=== PATIENT | male | born 1990 | race Caucasian/White ===

== ENCOUNTER 2020-06-15 16:39 | Inpatient (IN) | payer MEDICAID, OTHER ==
--- NOTE | 2020-06-15 17:35 | ED ---
Psych HPI - General Source: patient, EMS, RN notes reviewed Mode of arrival: EMS Limitations: no limitations <Larry Ceja - Last Filed: 06/15/20 17:33> <Brad Rossi - Last Filed: 06/15/20 19:40> - General Chief Complaint: Psychiatric Symptoms Stated Complaint: hallucinations Time Seen by Provider: 06/15/20 16:53 - History of Present Illness Initial Comments: This a 29-year-old male presents emergency Department via EMS from [place] chief complaint of hallucinations. Patient states he's been having hua ucinations for several weeks. He states that worsened since he's been at [place]. He states that he has felt suicidal at times but not currently suicidal. Patient does admit that he relapsed on methamphetamines and that's why he went to [place]. Patient does admit that he is on Suboxone, Xanax, Neurontin which is on this for several years. Patient denies any alcohol abuse. (Larry Ceja) Review of Systems ROS Other: All systems not noted in ROS Statement are negative. <Larry Ceja - Last Filed: 06/15/20 17:33> ROS Other: All systems not noted in ROS Statement are negative. <Brad Rossi - Last Filed: 06/15/20 19:40> ROS Statement: Those systems with pertinent positive or pertinent negative responses have been documented in the HPI. Past Medical History Past Medical History: No Reported History History of Any Multi-Drug Resistant Organisms: None Reported Past Surgical History: No Surgical Hx Reported Past Psychological History: Anxiety, Depression, Schizophrenia Smoking Status: Current every day smoker Past Alcohol Use History: None Reported Past Drug Use History: Methamphetamine <Larry Ceja - Last Filed: 06/15/20 17:33> General Exam Limitations: no limitations General appearance: alert, in no apparent distress Head exam: Present: atraumatic, normocephalic, normal inspection Eye exam: Present: normal appearance, PERRL, EOMI. Absent: scleral icterus, conjunctival injection, periorbital swelling ENT exam: Present: normal exam, normal oropharynx, mucous membranes moist Neck exam: Present: normal inspection, full ROM. Absent: tenderness, meningismus, lymphadenopathy Respiratory exam: Present: normal lung sounds bilaterally. Absent: respiratory distress, wheezes, rales, rhonchi, stridor Cardiovascular Exam: Present: regular rate, normal rhythm, normal heart sounds. Absent: systolic murmur, diastolic murmur, rubs, gallop, clicks GI/Abdominal exam: Present: soft, normal bowel sounds. Absent: distended, tenderness, guarding, rebound, rigid Neurological exam: Present: alert, oriented X3 Psychiatric exam: Present: flat affect Skin exam: Present: warm, dry, intact, normal color. Absent: rash <Larry Ceja - Last Filed: 06/15/20 17:33> Course Vital Signs 06/15/20 16:51 Temperature 98.3 F Pulse Rate 57 L Respiratory 18 Rate Blood Pressure 118/75 O2 Sat by Pulse 99 Oximetry Medical Decision Making <Brad Rossi - Last Filed: 06/15/20 19:40> - Medical Decision Making Patient seen by mental health services with plans for admission (Brad Rossi) - Lab Data Lab Results 06/15/20 Range/Units 17:07 Urine Opiates Screen Not Detected (NotDetected) Ur Oxycodone Screen Not Detected (NotDetected) Urine Methadone Screen Not Detected (NotDetected) Ur Propoxyphene Screen Not Detected (NotDetected) Ur Barbiturates Screen Not Detected (NotDetected) U Tricyclic Antidepress Not Detected (NotDetected) Ur Phencyclidine Scrn Not Detected (NotDetected) Ur Amphetamines Screen Not Detected (NotDetected) U Methamphetamines Scrn Not Detected (NotDetected) U Benzodiazepines Scrn Not Detected (NotDetected) Urine Cocaine Screen Not Detected (NotDetected) U Marijuana (THC) Screen Not Detected (NotDetected) Disposition <Larry Ceja - Last Filed: 06/15/20 17:33> Is patient prescribed a controlled substance at d/c from ED?: No Decision Time: 19:40 <Brad Rossi - Last Filed: 06/15/20 19:40> Clinical Impression: Psychosis Disposition: TRANSFER TO PSYCH HOSP/UNIT Referrals: Nonstaff,Physician [Primary Care Provider] - 1-2 days
[2020-06-15 17:46] LABS: Amphetamine Screen,Urine Not Detected (NotDetected); Barbiturate Screen,Urine Not Detected (NotDetected); Benzodiazepines Screen,Urine Not Detected (NotDetected); Cocaine Screen,Urine Not Detected (NotDetected); Methadone Screen, Urine Not Detected (NotDetected); Opiate Screen,Urine Not Detected (NotDetected); Oxycodone Screen, Urine Not Detected (NotDetected); Phencyclidine Screen,Urine Not Detected (NotDetected); Tricyclic Antidepressant,Urine Not Detected (NotDetected); Urn Cannabinoid Scrn Not Detected (NotDetected)
[2020-06-16] MEDS ORDERED: HALOPERIDOL LACTATE 5 MG/ML 1 ML VIAL IM PRN (00:40)
[2020-06-16 00:56] LABS: Appearance,Urine Clear (Clear); Bilirubin,Urine Negative (Negative); Blood,Urine Negative (Negative); Color,Urine Light Yellow; Glucose,Urine (UA) Negative (Negative); Ketones,Urine Negative (Negative); Leukocyte Esterase,Urine Negative (Negative); Nitrite,Urine Negative (Negative); PH, Urine 6.5 (5.0-8.0); Protein,Urine Negative (Negative); Urobilinogen,Urine <2.0 mg/dL (<2.0)
[2020-06-16] MEDS: ACETAMINOPHEN TAB 325 MG TAB PO PRN ×3 (01:30→18:40)
[2020-06-16] MEDS: LORazepam 1 MG TAB PO PRN ×3 (01:30→18:41)
[2020-06-16] MEDS ORDERED: MAG HYDROX/AL HYDROX/SIMETH 30 ML CUP PO PRN (04:00)
[2020-06-16] MEDS ORDERED: MAGNESIUM HYDROXIDE 2,400 MG/10 ML CUP PO PRN (09:00)
[2020-06-16] MEDS ORDERED: NICOTINE 21MG/24HR PATCH TRANSDERM SCH (09:00)
[2020-06-16] MEDS ORDERED: NICOTINE 14MG/24HR PATCH TRANSDERM SCH (09:00)
[2020-06-16] MEDS ORDERED: cloNIDine HCL 0.1 MG TAB PO PRN (10:10)
[2020-06-16] MEDS ORDERED: traZODone HCL 50 MG TAB PO PRN (10:12)
[2020-06-16] MEDS ORDERED: hydrOXYzine pamoate 25 MG CAP PO PRN (10:12)
[2020-06-16] MEDS ORDERED: PALIPERIDONE 3 MG TAB.ER.24 PO SCH (10:15)
--- NOTE | 2020-06-16 10:24 | P.HP ---
Psychiatric H&P - . H&P Date: 06/16/20 History & Physical: Allergies Allergy/AdvReac Type Severity Reaction Status Date / Time No Known Allergies Allergy Verified 06/16/20 02:41 Vital Signs Temp 98.1 F 06/16/20 02:04 Pulse 75 06/16/20 08:50 Resp 18 06/16/20 02:04 BP 115/77 06/16/20 08:50 Pulse Ox 100 06/16/20 02:04 Intake & Output 06/15/20 06/16/20 06/16/20 18:59 06:59 18:59 Weight 61.235 kg 57.1 kg Laboratory Last Values Urine Color Light Yellow 06/16/20 00:00 Urine Appearance Clear (Clear) 06/16/20 00:00 Urine pH 6.5 (5.0-8.0) 06/16/20 00:00 Ur Specific Dorothy 1.010 (1.001-1.035) 06/16/20 00:00 Urine Protein Negative (Negative) 06/16/20 00:00 Urine Glucose (UA) Negative (Negative) 06/16/20 00:00 Urine Ketones Negative (Negative) 06/16/20 00:00 Urine Blood Negative (Negative) 06/16/20 00:00 Urine Nitrite Negative (Negative) 06/16/20 00:00 Urine Bilirubin Negative (Negative) 06/16/20 00:00 Urine Urobilinogen <2.0 mg/dL (<2.0) 06/16/20 00:00 Ur Leukocyte Esterase Negative (Negative) 06/16/20 00:00 Urine Opiates Screen Not Detected (NotDetected) 06/15/20 17:07 Ur Oxycodone Screen Not Detected (NotDetected) 06/15/20 17:07 Urine Methadone Screen Not Detected (NotDetected) 06/15/20 17:07 Ur Propoxyphene Screen Not Detected (NotDetected) 06/15/20 17:07 Ur Barbiturates Screen Not Detected (NotDetected) 06/15/20 17:07 U Tricyclic Antidepress Not Detected (NotDetected) 06/15/20 17:07 Ur Phencyclidine Scrn Not Detected (NotDetected) 06/15/20 17:07 Ur Amphetamines Screen Not Detected (NotDetected) 06/15/20 17:07 U Methamphetamines Scrn Not Detected (NotDetected) 06/15/20 17:07 U Benzodiazepines Scrn Not Detected (NotDetected) 06/15/20 17:07 Urine Cocaine Screen Not Detected (NotDetected) 06/15/20 17:07 U Marijuana (THC) Screen Not Detected (NotDetected) 06/15/20 17:07 Coronavirus (PCR) Not Detected (Not Detectd) 06/15/20 21:04 06/16/20 10:14 IDENTIFYING DATA: Patient is a 29-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 HPI: Patient presented to the hospital yesterday after coming from [facility] as he was complaining of auditory and visual hallucinations. Patient claimed in the ER that it has been going on for several weeks and has been worsening since he is at rehab. Patient also endorsed in the ER than he was previously feeling suicidal and had relapsed on methamphetamine. Patient's UDS was negative. Patient was seen today and appeared to have fair hygiene and grooming and was cooperative with interview. He claims that for approximately 1-1/2 years she has been having episodes where he hears voices and has been seeing things. He claims that there has been significant paranoia that she believes that people have been trying to poison him and also have been plotting against him. He claims that he has attempted suicide twice in the past 1-1/2 years however his girlfriend has "saved me". He claims that when he was in snf he was placed on Zyprexa and BuSpar which helped him. He claims that he was having difficulty at work due to feeling that his coworkers return to poison him. He states that also living with friends has been difficult for him as he feels they are drugging him. He states that his last use of methamphetamine was on June 01 and states that he has been at [facility] for 90s now. He claims that these voices and thoughts have been occurring even after he is sober. He states that his mood is "relieved" at this time however continues to endorse anxiety. He states that he's been having vivid dreams and claims that last night he dreamt of "killing my best friend" even though he claims that he has no wish to do this. He states that he has been sleeping fairly at night approximately 7-8 hours. He was endorsing mild opiate withdrawal symptoms at this time including running nose and mild aches.. Patient denies any suicidal or homicidal ideations intent or plan. Patient denies any flight of ideas racing thoughts and increased in goal directed behavior. Patient admits to using methamphetamine for approximately one half years however states that he has been sober since June 01. He claims that he smokes marijuana daily approximately half an ounce a day. He states that he smokes cigarettes and denies any other recreational drug use. PAST PSYCHIATRIC HISTORY: Patient states that he has a history of polysubstance abuse and psychosis. He claims that he remembers being on Zyprexa and BuSpar while he was in snf in the past. Patient denies any previous psychiatric hospitalizations. Patient denies any psychiatric outpatient follow-up. He states that he has had multiple suicide attempts including 6 overdoses and 2 times where he cut his arm. PMH:denies ALLERGIES: as per EMR CHEMICAL DEPENDENCY HISTORY: as per HPI FAMILY PSYCHIATRIC/SUBSTANCE USE HISTORY: denies SOCIAL HISTORY: Patient was born and raised in [facility] and claims that he completed his GED in school. 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 He states that he has been to snf twice in the past for drug related charges. MENTAL STATUS EXAM: General Appearance: Patient appears to be short in stature, thin, stated age is alert, directable, and attempts to attempts to cooperate. Patient appears to h ave fair hygiene and grooming. Behavior: Patient is seated without any agitated behavior. . Appears to be anxious at times. Speech: Patient's speech is fluent and nonpressured. Hesitant. Mood/Affect: Patient reports their mood is " relieved", affect is congruent Suicidality/Homicidality: Patient denies having any homicidal ideation intent or plan. Denies any suicidal ideations intent or plan Perceptions: Patient admits to visual and auditory hallucinations of people plotting against him and try to poison him and also the voices "telling me to do stuff". Though content/process: There is no evidence of any delusional thought content and thought process is linear and goal-directed. Memory and concentration: AOX3, grossly intact for the purposes of this session. Can spell "WORLD" backwards Judgment and insight: poor STRENGTHS/WEAKNESSES: strength is that patient is resilient. Weakness is that patient has poor judgment and chronic substance abuse INTELLECT: average IMPRESSIONS: Psychosis unspecified, rule out psychosis secondary to substance use including cannabis and methamphetamine Cannabis use disorder Methamphetamine abuse Opioid use disorder, currently in withdrawal Nicotine dependence PLAN: -Patient is admitted under voluntary status to MHU for stabilization of psychiatric symptoms and safety. Patient has signed adult voluntary form and medication consent and is placed in patient's chart. -Medications : Will start patient on paliperidone by mouth 3 mg daily for psychosis. BuSpar 10 mg twice a day for anxiety. Vistaril 25 mg every 6 hours when necessary for anxiety. Trazodone 50 mg daily at bedtime when necessary for insomnia. Clonidine 0.1 mg 3 times a day when necessary for opiate withdrawal. -Patient claims that he is on Suboxone as an outpatient however will be to try to arrange for his mother to have it brought in to be placed back on it as he has been on this medication for approximately 5 years due to previous opioid use disorder. -Ativan and Haldol PRN for agitation/aggression -Patient was counselled on substance abuse and desired to cut back on use -Patient was informed of the risks, benefits and side effects of the medication and patient verbally consented to taking the medications. Patient signed med consent form and was placed in chart. -Internal Medicine consult to perform medical evaluation and physical. -NRT - nicotine patch -SW on board for discharge planning. Encourage patient to participate in groups to work on coping skills.
[2020-06-16] MEDS ORDERED: CLINDAMYCIN 900 MG in DEXTROSE 5% IN WATER 50 ML IVPB STA ×2 (19:49)
[2020-06-16] MEDS ORDERED: DOXYCYCLINE 100 MG in SODIUM CHLORIDE 0.9% 100 ML IVPB ONE (19:54)
--- NOTE | 2020-06-16 20:27 | CT ---
EXAMINATION TYPE: CT sinus w con DATE OF EXAM: 06/16/2020 COMPARISON: None HISTORY: c/o facial pain with cellulitis CT DLP: 321.7 mGycm Automated exposure control for dose reduction was used. CONTRAST: Performed with IV Contrast, patient injected with 100 mL of Isovue 300. Images were obtained from the level of the bottom of the maxilla to the top of the frontal sinuses wi th IV contrast. Visualized mandible appears intact. The maxilla is intact. There is intact zygomatic arches. Nasal dylon ne is intact. There is normal aeration of the paranasal sinuses. There is no evidence of orbital mass . The globes are symmetric. There is normal aeration of the mastoid sinuses. There is normal aeration of the epitympanic recess bilaterally. There is no evidence of a blowout fracture. There is no pathologic enhancement. The tonsils and adeno ids appear normal. IMPRESSION: Negative CT scan of the facial bones and paranasal sinuses. No evidence of sinusitis.
[2020-06-16 20:54] VITALS: BP 117/70; PULSE 107; RESP 16; TEMP 99.3
[2020-06-16] MEDS ORDERED: AMOXIC-POT CLAV 875-125MG 1 EACH TAB PO SCH (21:00)
[2020-06-16] MEDS ORDERED: busPIRone HCl 10 MG TAB PO SCH (21:00)
== END 2020-06-16 20:48 | disposition short-term general hospital (02) | DRG 885 ==
LOC: EC 16:39 → 3MHU 23:57
PROVIDERS: ADMIT Psychiatry & Neurology Psychiatry; ATTEND Psychiatry & Neurology Psychiatry
DX: F29 Unspecified psychosis not due to a substance or known physiological condition (principal); R45.851 Suicidal ideations; F11.23 Opioid dependence with withdrawal; F15.10 Other stimulant abuse, uncomplicated; F12.10 Cannabis abuse, uncomplicated; Z20.828 Contact with and (suspected) exposure to other viral communicable diseases; F41.9 Anxiety disorder, unspecified; F17.210 Nicotine dependence, cigarettes, uncomplicated; Z71.6 Tobacco abuse counseling; Z91.5 Personal history of self-harm
CPT/HCPCS: 70487; 80306; 81003; 82075; 87635; 99285

== ENCOUNTER 2020-06-16 20:56 | Inpatient (IN) | payer OTHER ==
[2020-06-16 21:53] LABS: Basophils # (A) 0.1 k/uL (0-0.2); Basophils % (A) 1 %; Eosinophils # (A) 0.1 k/uL (0-0.7); Eosinophils % (A) 1 %; HCT 47.8 % (39.0-53.0); HGB 15.5 gm/dL (13.0-17.5); Lymphocytes # (A) 2.5 k/uL (1.0-4.8); Lymphocytes % (A) 19 %; MCH 30.5 pg (25.0-35.0); MCHC 32.5 g/dL (31.0-37.0); MCV 93.7 fL (80.0-100.0); Monocytes # (A) 0.8 k/uL (0-1.0); Monocytes % (A) 6 %; Neutrophils # (A) 9.2 k/uL (1.3-7.7); Neutrophils % (A) 72 %; Platelet Count 190 k/uL (150-450); RDW 13.9 % (11.5-15.5); WBC 12.8 k/uL (3.8-10.6)
[2020-06-16] MEDS ORDERED: NALOXONE 0.4 MG/ML 1 ML VIAL IV PRN (22:05)
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
[2020-06-16 22:33] LABS: ALT 317 U/L (4-49); AST 138 U/L (17-59); African American GFR (CKD) >90 (>60 ml/min/1.73 sqM); Albumin 4.4 g/dL (3.5-5.0); Albumin/Globulin Ratio 1.4; Alkaline Phosphatase 112 U/L (38-126); Anion Gap 9 mmol/L; Blood Urea Nitrogen 25 mg/dL (9-20); Calcium 9.9 mg/dL (8.4-10.2); Carbon Dioxide 23 mmol/L (22-30); Chloride 105 mmol/L (98-107); Globulin 3.1 g/dL; Glucose 94 mg/dL (74-99); Non-African American GFR(CKD) 86 (>60 ml/min/1.73 sqM); Potassium 4.5 mmol/L (3.5-5.1); Sodium 137 mmol/L (137-145); Total Bilirubin 0.5 mg/dL (0.2-1.3); Total Protein 7.5 g/dL (6.3-8.2)
[2020-06-16] MEDS: SODIUM CHLORIDE 0.9% 1,000 ML IV SCH (22:49)
[2020-06-16] MEDS: AMOXIC-POT CLAV 875-125MG 1 EACH TAB PO SCH (22:55)
[2020-06-16] MEDS: traZODone HCL 50 MG TAB PO PRN (22:55)
[2020-06-16] MEDS: HYDROcodone/APAP 5-325MG 1 EACH TAB PO PRN (22:55)
[2020-06-16] MEDS: CLINDAMYCIN 600 MG in DEXTROSE 5% IN WATER 50 ML IVPB SCH ×2 (23:56)
[2020-06-17] MEDS: HYDROcodone/APAP 5-325MG 1 EACH TAB PO PRN ×4 (05:20→19:14)
[2020-06-17] MEDS: CLINDAMYCIN 600 MG in DEXTROSE 5% IN WATER 50 ML IVPB SCH ×2 (05:21)
[2020-06-17 06:41] LABS: Basophils # (A) 0.1 k/uL (0-0.2); Basophils % (A) 1 %; Eosinophils # (A) 0.1 k/uL (0-0.7); Eosinophils % (A) 1 %; HCT 45.4 % (39.0-53.0); HGB 14.8 gm/dL (13.0-17.5); Lymphocytes # (A) 2.3 k/uL (1.0-4.8); Lymphocytes % (A) 19 %; MCH 30.2 pg (25.0-35.0); MCHC 32.7 g/dL (31.0-37.0); MCV 92.3 fL (80.0-100.0); Mean Platelet Volume 7.8; Monocytes # (A) 0.7 k/uL (0-1.0); Monocytes % (A) 6 %; Neutrophils # (A) 9.1 k/uL (1.3-7.7); Neutrophils % (A) 73 %; Platelet Count 192 k/uL (150-450); RBC 4.91 m/uL (4.30-5.90); RDW 13.8 % (11.5-15.5); WBC 12.4 k/uL (3.8-10.6)
[2020-06-17] MEDS: busPIRone HCl 10 MG TAB PO SCH ×2 (07:13→20:01)
[2020-06-17] MEDS: AMOXIC-POT CLAV 875-125MG 1 EACH TAB PO SCH (07:13)
[2020-06-17] MEDS: PALIPERIDONE 3 MG TAB.ER.24 PO SCH (07:13)
[2020-06-17] MEDS: NICOTINE 21MG/24HR PATCH TRANSDERM SCH (07:13)
[2020-06-17] MEDS: GABAPENTIN 300 MG CAP PO SCH ×2 (08:22→20:01)
[2020-06-17] MEDS: ALPRAZolam 0.5 MG TAB PO PRN ×2 (08:22→17:16)
[2020-06-17] MEDS ORDERED: VANCOMYCIN IV PER PHARMACY 1 EACH MISC MISCELLANE PRN (09:21)
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
[2020-06-17] MEDS: VANCOMYCIN 1,250 MG in SODIUM CHLORIDE 0.9% 250 ML IVPB SCH ×2 (10:03→17:13)
[2020-06-17] MEDS: SODIUM CHLORIDE 0.9% 1,000 ML IV SCH (10:09)
[2020-06-17 10:39] LABS: African American GFR (CKD) 118.2 (60.0-200.0); Albumin 4.3 g/dL (3.80-4.90); Albumin/Globulin Ratio 1.79 (1.60-3.17); Calcium 9.5 mg/dL (8.7-10.3); Globulin 2.4 g/dL (1.6-3.3); Potassium 4.4 mmol/L (3.5-5.5); Total Bilirubin 0.6 mg/dL (0.2-1.2); Total Protein 6.7 g/dL (6.2-8.2)
--- NOTE | 2020-06-17 10:50 | P.PN ---
Subjective Progress Note Date: 06/17/20 Principal diagnosis: Facial cellulitis Patient still having pain on the left side of the nose. He is feeling hot as well but no reported fever. No chills. No nasal drainage, visual changes. Objective - Vital Signs Vital signs: Vital Signs Temp 97.9 F 06/17/20 07:02 Pulse 86 06/17/20 07:02 Resp 18 06/17/20 07:02 BP 101/66 06/17/20 07:02 Pulse Ox 98 06/17/20 07:02 Intake & Output 06/16/20 06/17/20 06/17/20 18:59 06:59 18:59 Intake Total 100 Balance 100 Weight 61.36 kg Intake: Oral 100 Other: # Voids 2 - Exam General: non toxic, no distress, appears at stated age, normal weight Derm: Nasal bridge and left sided nasal erythema and swelling without ulcers; no erythema, induration, or swelling of periorbial regions ashvin, warm, dry Head: atraumatic, normocephalic, symmetric Eyes: EOMI, no lid lag, anicteric sclera, pupils equal round reactive to light ENT: Nose and ears atraumatic, no thrush, no pharyngeal erythema Neck: No thyromegaly, no cervical lymphadenopathy, trachea midline, supple Mouth: no lip lesion, mucus membranes moist Cardiovascular: S1S2 reg, no murmur, positive posterior tibial pulse bilateral, no edema, capillary refill less than 2 seconds Lungs: CTA bilateral, no rhonchi, no rales , no accessory muscle use Abdominal: soft, nontender to palpation, no guarding, no appreciable o rganomegaly, normal bowel sounds Ext: no gross muscle atrophy, muscle strength 5 out of 5 in all 4 extremities grossly, no contractures, Neuro: CN II-XI grossly intact, light touch intact all 4 extremities, finger to nose within normal limits, Psych: Alert, oriented, appropriate affect - Labs CBC & Chem 7: 06/17/20 06:18 06/17/20 06:18 Labs: Abnormal Lab Results - Last 24 Hours (Table) 06/16/20 06/16/20 06/17/20 Range/Units 21:20 21:20 06:18 WBC 12.8 H 12.4 H (3.8-10.6) k/uL Neutrophils # 9.2 H 9.1 H (1.3-7.7) k/uL BUN 25 H (9-20) mg/dL AST 138 H (17-59) U/L ALT 317 H (4-49) U/L 06/17/20 Range/Units 06:18 WBC (3.8-10.6) k/uL Neutrophils # (1.3-7.7) k/uL BUN (9-20) mg/dL AST 143 H (17-59) U/L ALT 331 H (4-49) U/L Assessment and Plan Plan: Facial cellulitis -CT scan unremrakable -Patient seen by ID, antibiotic switched to vancomycin -MRSA nasal screen -F/u blood cultures -Pain control -IVFs Psychosis -Psychiatry consult Methamphetamine abuse -Advised patient on the importance of cessation DVT prophylaxis -IPCDs Anticipated discharge date: 2-[address]: [facility] A total of 35 minutes was spent on the care of this complex patient more than 50% of the time was spent in counseling and care coordination.
[2020-06-18] MEDS: HYDROcodone/APAP 5-325MG 1 EACH TAB PO PRN ×4 (00:01→18:24)
[2020-06-18] MEDS: SODIUM CHLORIDE 0.9% 1,000 ML IV SCH ×2 (01:17→15:31)
[2020-06-18] MEDS: VANCOMYCIN 1,250 MG in SODIUM CHLORIDE 0.9% 250 ML IVPB SCH ×3 (01:18→17:19)
[2020-06-18] MEDS: PALIPERIDONE 3 MG TAB.ER.24 PO SCH (07:17)
[2020-06-18] MEDS: busPIRone HCl 10 MG TAB PO SCH ×2 (07:17→20:25)
[2020-06-18] MEDS: GABAPENTIN 300 MG CAP PO SCH ×2 (07:17→20:25)
[2020-06-18] MEDS: NICOTINE 21MG/24HR PATCH TRANSDERM SCH (07:18)
[2020-06-18] MEDS: ALPRAZolam 0.5 MG TAB PO PRN ×2 (07:18→18:24)
[2020-06-18 08:44] LABS: African American GFR (CKD) >90 (>60 ml/min/1.73 sqM); Non-African American GFR(CKD) >90 (>60 ml/min/1.73 sqM)
--- NOTE | 2020-06-18 09:57 | CONS ---
CONSULTATION DATE OF SERVICE: 06/17/2020 PURPOSE FOR CONSULTATION: Evaluate for psychosis and depression. HISTORY OF PRESENTING ILLNESS: The patient is a 29-year-old male. He initially was admitted to the [facility] He was having persistent problems with auditory and visual hallucinations. He had relapsed to drug use with his last use of methamphetamine being June 01, he went into [facility] and had been there for 9 days. He noted that voices persisted even though he was clean from substances at that time. He had traumatic dreams. He acknowledged opioid withdrawal issues. He had a history of suicidality, though was denying any thoughts of self-harm. He was transferred to the medical unit for facial cellulitis. He has been assessed for MRSA, though all results are not back at the time that I interviewed him. The patient states that he was doing fairly well. When I talked to him he said that his voices had pretty much abated. He had a better outlook. He said his mood was good. He was unclear about discharge planning. MENTAL STATUS: Patient was sitting in his room. He gave good eye contact. Psychomotor activity was normal. His thoughts were clear. He answered questions with appropriate responses. His affect was in reasonable range. His mood was quiet, though not clearly down or depressed. He did not appear to be significantly distressed. There was no indication of thought disorder. Cognition was clear. ASSESSMENT: I will continue diagnosis of methamphetamine abuse, polysubstance abuse and dependence and acute substance withdrawal. I will continue psychotropic medications the same including Invega 3 mg a day, BuSpar 10 mg twice a day and trazodone 50 mg at bedtime p.r.n. I will discontinue Xanax. Patient continues on Sheffield 5 mg p.r.n. and Neurontin 300 mg twice a day. At this point, the patient is in early acute withdrawal from abusive substances. He is not fully in initial withdrawal given that he has continued to receive both Xanax and Sheffield. When those medications are discontinued is the point where withdrawal begins. I discussed withdrawal issues with the patient. I also discussed treatment planning on the basis of his clearing from his facial cellulitis. The patient was hopeful to be discharged from the hospital and did not feel he was needing a psychiatric admission. I will continue to evaluate. MMODL / IJN: [id number] /
--- NOTE | 2020-06-18 10:49 | P.PN ---
Subjective Progress Note Date: 06/18/20 Principal diagnosis: Facial cellulitis Patient is doing better today. He noticed some bloody purulent discharge coming out from his nose. Still having severe pain on the left side of the nose. Denied any fevers or chills. Objective - Vital Signs Vital signs: Vital Signs Temp 97.7 F 06/18/20 07:22 Pulse 102 H 06/18/20 07:22 Resp 18 06/18/20 07:22 BP 107/73 06/18/20 07:22 Pulse Ox 96 06/18/20 07:22 Intake & Output 06/17/20 06/18/20 06/18/20 18:59 06:59 18:59 Intake Total 800 Balance 800 Intake: Intake, IV Titration 800 Amount Sodium Chloride 0.9% 1, 675 000 ml @ 75 mls/hr IV . [id number] [facility] Rx#:[id number] Vancomycin 1,250 mg In 125 Sodium Chloride 0.9% 250 ml @ 125 mls/hr IVPB Q8H [facility] Rx#:[id number] Other: Voiding Method Toilet # Voids 5 1 # Bowel Movements 2 - Exam General: non toxic, no distress, appears at stated age, normal weight Derm: Nasal bridge and left sided nasal erythema and swelling without ulcers; no erythema, induration, or swelling of periorbial regions ashvin, warm, dry Head: atraumatic, normocephalic, symmetric Eyes: EOMI, no lid lag, anicteric sclera, pupils equal round reactive to light ENT: Nose and ears atraumatic, no thrush, no pharyngeal erythema Neck: No thyromegaly, no cervical lymphadenopathy, trachea midline, supple Mouth: no lip lesion, mucus membranes moist Cardiovascular: S1S2 reg, no murmur, positive posterior tibial pulse bilateral, no edema, capillary refill less than 2 seconds Lungs: CTA bilateral, no rhonchi, no rales , no accessory muscle use Abdominal: soft, nontender to palpation, no guarding, no appreciable organomegaly, normal bowel sounds Ext: no gross muscle atrophy, muscle strength 5 out of 5 in all 4 extremities grossly, no contractures, Neuro: CN II-XI grossly intact, light touch intact all 4 extremities, finger to nose within normal limits, Psych: Alert, oriented, appropriate affect - Labs CBC & Chem 7: 06/17/20 06:18 06/18/20 07:31 Labs: Microbiology - Last 24 Hours (Table) 06/16/20 21:20 Blood Culture - Preliminary Blood No Growth after 24 hours 06/17/20 12:30 Nasal Screen MRSA/MSSA - Preliminary Nasal Swab Assessment and Plan Plan: Facial cellulitis -CT scan unremrakable -Patient seen by ID, continue vancomycin -MRSA nasal screen -F/u blood cultures -Pain control -IVFs Psychosis -Psychiatry consulted Methamphetamine and opiates abuse -Advised patient on the importance of cessation DVT prophylaxis -IPCDs Anticipated discharge date: Tomorrow Anticipated discharge place: MHU vs. home. Psych following A total of 35 minutes was spent on the care of this complex patient more than 50% of the time was spent in counseling and care coordination.
--- NOTE | 2020-06-18 13:32 | CONS ---
CONSULTATION DATE OF SERVICE: 06/18/2020 PURPOSE FOR CONSULTATION: Evaluate for psychosis and depression. INTERVAL HISTORY: Patient has been doing fair. He had a quiet day yesterday. He says that overall he is feeling fairly well. He accepts the idea that he still is on habit-forming medications so that he really is not addressing withdrawal issues. He has been sleeping okay. He notes that he was taking Suboxone when he was at [facility] apparently by getting some pieces of the Suboxone from another patient there. He acknowledged that he likely was on a significantly lower amount than he was taking it at home that may have been part of the reason why he was having issues that brought him to the hospital. He also notes that he has had problems with auditory hallucinations for longer than his current situation. When we reviewed substance use issues, he acknowledges that he has not really been clear of abusive substances for any period of time. He notes that he smokes marijuana regularly but has gone "16 or 17 days" without marijuana though during that time he would have been taking other things such as opioids or benzodiazepines. He apparently has been on Xanax prior to coming into the hospital. His insight in regards to substance use issues and withdrawal is somewhat limited, which he acknowledges. He had been living at [facility] in [facility]. He said it was a good program for him, though he was hoping to find an alternative situation because at [facility] they do not allow any medications including prescribed psychotropic medications. He said that when he is discharged he can live with family and he has been talking with his family and working on trying to find a half-way house closer to family. He said that he was interested in being off all habit-forming medications. I reviewed withdrawal issues in detail. I provided him with a handout on expectations of withdrawal as well as interventions in ways that he can manage early withdrawal, especially through the first 6 to 8 weeks and beyond. I discussed that the Invega that he is on may help to some extent in managing some of his withdrawal. The patient stated that he was motivated to move in the direction of getting off all abusive substances including Suboxone. When I talked to him, he gave good eye contact. He was quite animated. His thoughts were clear and coherent. His mood was even. He seemed to show good interest in the discussion about withdrawal and ways that he can move away from abusive substances. RECOMMENDATIONS: At this point, the patient is stable to be discharged from a psychiatric standpoint. My understanding is that he would be living with family temporarily while he sets up followup through a half[place]way [place]. He understood resources for treatment. I would recommend he is discharged on Invega 3 mg a day, BuSpar 10 mg twice a day and trazodone 50 mg at bedtime. I have discontinued Xanax and recommend no further prescriptions of benzodiazepines. I would also recommend discontinuing opioid pain medications as well. He could be referred to [facility] or other agency for substance abuse followup. KATIE / LANDONN: [id number] /
--- NOTE | 2020-06-18 15:38 | PN ---
PROGRESS NOTE DATE OF SERVICE: 06/18/2020 REASON FOR FOLLOWUP: Facial cellulitis. INTERVAL HISTORY: The patient is currently afebrile. The patient mentioned there was slight drainage from the left nostril area apparently has been cultured by nursing staff. Overall swelling and redness has decreased. Pain has decreased. Denies having any chest pain or shortness of breath or cough. No abdominal pain or diarrhea. PHYSICAL EXAMINATION: Blood pressure 107/73 with a pulse of 102, temperature of 97.7. He is 96% on room air. General description is a middle-aged male lying in bed in no distress. HEENT: Shows swelling and redness of the nose has decreased. LUNGS: Unlabored breathing, clear to auscultation anteriorly HEART: S1, S2. Regular rate and rhythm. ABDOMEN: Soft, no tenderness. LABS: Creatinine 0.75. Blood culture negative. DIAGNOSTIC IMPRESSION AND PLAN: Patient with nasal cellulitis, small abscess that has subsequently drained. Cultures currently pending. Continue vancomycin in view of clinical response to it and monitor clinical course closely. MMODL / IJN: [id number] /
[2020-06-18] MEDS ORDERED: VANCOMYCIN TROUGH DUE 1 EACH MISC MISCELLANE ONE (17:00)
[2020-06-18] MEDS: traZODone HCL 50 MG TAB PO PRN (20:25)
[2020-06-19] MEDS: HYDROcodone/APAP 5-325MG 1 EACH TAB PO PRN ×3 (01:49→11:37)
[2020-06-19] MEDS: VANCOMYCIN 1,250 MG in SODIUM CHLORIDE 0.9% 250 ML IVPB SCH ×2 (01:49→10:03)
[2020-06-19] MEDS: SODIUM CHLORIDE 0.9% 1,000 ML IV SCH (01:49)
[2020-06-19 04:20] VITALS: BP 100/61; PULSE 83; RESP 16; TEMP 97.6
[2020-06-19] MEDS: GABAPENTIN 300 MG CAP PO SCH (07:26)
[2020-06-19] MEDS: NICOTINE 21MG/24HR PATCH TRANSDERM SCH (07:26)
[2020-06-19] MEDS: busPIRone HCl 10 MG TAB PO SCH (07:26)
[2020-06-19] MEDS: ALPRAZolam 0.5 MG TAB PO PRN (07:26)
[2020-06-19 09:59] LABS: African American GFR (CKD) 148.8 (60.0-200.0); Non-African American GFR(CKD) 128.4 (60.0-200.0)
[2020-06-19] MEDS: PALIPERIDONE 3 MG TAB.ER.24 PO SCH (10:04)
--- NOTE | 2020-06-19 12:47 | P.DS ---
Providers Date of admission: 06/16/20 20:56 Expected date of discharge: 06/19/20 Attending physician: Trena Coello MD Consults: 06/16/20 22:07 Consult Physician Routine Consulting Provider: Tami Neely Consult Reason/Comments: Facial cellulitis Do you want consulting provider notified?: Yes 06/17/20 07:34 Consult Physician Routine Consulting Provider: Giovanny Betancourt Consult Reason/Comments: psychosis Do you want consulting provider notified?: Yes Primary care physician: Physician Nonstaff Hospital Course: 29-year-old male with a PMH of methamphetamine abuse, schizophrenia, depression, and anxiety who had presented to the emergency room from [facility] due to hallucinations. The patient also reported some suicidal ideation. He was admitted to the mental health unit. He reported that over the past 2 days, he has developed gradually worsening pain and swelling of of his nose. He noted that his symptoms worsened significantly throughout the day with minimal pain the day prior. The pain was extending up towards his L eye, but denied changes in his vision. Had some subjective fevers. Denied headache, chest pain, shortness of breath, nausea, vomiting, or dizziness. Denied facial asymmetry, changes in speech, or impaired gait. Facial CT with contrast was unremarkable. Laboratory evaluation was remarkable for leukocytosis of 12.8. Patient was given stat doses of doxycycline and Augmentin and was transferred to the medical floor for further management. Upon admission there his antibiotics were switched to IV vancomycin. He was seen by ID who agreed with that. Over the hospitalization course he noticed some yellow and bloody drainage coming out from the left side of the nose. With antibiotics for cellulitis continued to improve gradually. Today it is almost resolved. Patient was seen by psychiatry during his stay in the medical floor and he was cleared to be discharged home. His medications were changed to invega 3 mg daily, buspar 10mg bid, trazodone 50mg q hs. He was provided prescriptions for those upon discharge. He was also provided prescription for clindamycin to complete a course of 1 week for treatment of the cellulitis. Time for discharge 35 minutes. Plan - Discharge Summary Discharge Rx Participant: No New Discharge Prescriptions: New busPIRone HCl [Buspar] 10 mg PO BID 30 Days #60 tab traZODone HCL [Desyrel] 50 mg PO HS PRN 30 Days #30 tab PRN Reason: Insomnia Paliperidone [Invega] 3 mg PO DAILY 30 Days #30 tab.er.24 Gabapentin [Neurontin] 300 mg PO BID 30 Days #60 cap Clindamycin HCl 300 mg PO Q8HR 5 Days #15 cap Continue traZODone HCL 50 - 150 mg PO HS PRN PRN Reason: Insomnia Ibuprofen [Motrin] 600 mg PO Q6H PRN PRN Reason: Pain Acetaminophen [Tylenol Arthritis] 650 mg PO Q4H PRN MDD 6 TABS/24 HOURS PRN Reason: Fever And/ Or Pain busPIRone HCl [Buspar] 10 mg PO DIRECTED PRN PRN Reason: Anxiety Buprenorphine HCl/Naloxone HCl [Suboxone 8 mg-2 mg Sl Film] 1 each SL Gabapentin [Neurontin] 300 mg PO BID Discontinued Chlorpheniramine Maleate [Chlor-Trimeton] 4 mg PO Q4H PRN MDD 4 DOSES/24 HOURS PRN Reason: Allergy Symptoms ondansetron HCL [Zofran] 8 mg PO Q6H PRN PRN Reason: Nausea And Vomiting Calcium 1000mg/Magnesium 500mg 1 tab PO TID PRN PRN Reason: MUSCLE CRAMPS cloNIDine HCL [Catapres] 0.1 mg PO Q4H PRN PRN Reason: Blood Pressure Multivitamins, Thera [Multivitamin (formulary)] 1 tab PO DAILY ALPRAZolam [Xanax] 0.5 mg PO BID PRN PRN Reason: Anxiety Discharge Medication List Acetaminophen [Tylenol Arthritis] 650 mg PO Q4H PRN MDD 6 TABS/24 HOURS 06/15/20 [History] Ibuprofen [Motrin] 600 mg PO Q6H PRN 06/15/20 [History] busPIRone HCl [Buspar] 10 mg PO DIRECTED PRN 06/15/20 [History] traZODone HCL 50 - 150 mg PO HS PRN 06/15/20 [History] Buprenorphine HCl/Naloxone HCl [Suboxone 8 mg-2 mg Sl Film] 1 each SL 06/16/20 [History] Gabapentin [Neurontin] 300 mg PO BID 06/17/20 [History] Clindamycin HCl 300 mg PO Q8HR 5 Days #15 cap 06/19/20 [Rx] Gabapentin [Neurontin] 300 mg PO BID 30 Days #60 cap 06/19/20 [Rx] Paliperidone [Invega] 3 mg PO DAILY 30 Days #30 tab.er.24 06/19/20 [Rx] busPIRone HCl [Buspar] 10 mg PO BID 30 Days #60 tab 06/19/20 [Rx] traZODone HCL [Desyrel] 50 mg PO HS PRN 30 Days #30 tab 06/19/20 [Rx] Patient Instructions/Handouts: Cellulitis (DC) Discharge Disposition: HOME SELF-CARE
== END 2020-06-19 11:50 | disposition home or self-care (01) | DRG 603 ==
LOC: 4SSUR 20:56
PROVIDERS: ADMIT Internal Medicine; ATTEND Internal Medicine
DX: L03.211 Cellulitis of face (principal); R45.851 Suicidal ideations; F11.23 Opioid dependence with withdrawal; F15.10 Other stimulant abuse, uncomplicated; F20.9 Schizophrenia, unspecified; J34.0 Abscess, furuncle and carbuncle of nose; F32.9 Major depressive disorder, single episode, unspecified; F41.9 Anxiety disorder, unspecified; F90.9 Attention-deficit hyperactivity disorder, unspecified type; G56.91 Unspecified mononeuropathy of right upper limb; F17.200 Nicotine dependence, unspecified, uncomplicated; Z71.6 Tobacco abuse counseling; Z79.899 Other long term (current) drug therapy
CPT/HCPCS: 80053; 80202; 82565; 83605; 85025; 87040; 87070; 87075; 87077; 87186; 87205; 93005